=== PATIENT | male | born 1930 | race Caucasian/White ===

== ENCOUNTER → 2017-12-24 | Outpatient (CLI) | payer MEDICARE, OTHER | LOC: M.RAD 13:52 | DX: M54.42 Lumbago with sciatica, left side (principal); M54.41 Lumbago with sciatica, right side; G89.29 Other chronic pain; M47.896 Other spondylosis, lumbar region; M47.894 Other spondylosis, thoracic region; M41.85 Other forms of scoliosis, thoracolumbar region; R35.0 Frequency of micturition ==

== ENCOUNTER 2019-09-20 05:24 | Inpatient (IN) | payer MEDICARE, OTHER ==
[2019-09-20] VITALS (7 sets, daily range): BP systolic 116–140; BP diastolic 65–82
[~2019-09-20] VITALS: Ht 162.6 cm; Wt 57.2 kg
[2019-09-20] MEDS ORDERED: LIPITOR 20 MG T20 M1 PO (05:44)
[2019-09-20] MEDS ORDERED: ALPRAZOLAM XR3 MG PO (05:44)
[2019-09-20] MEDS ORDERED: ASA81BEC PO (05:44)
[2019-09-20] MEDS ORDERED: COQ-10100 MG PO (05:45)
[2019-09-20] MEDS ORDERED: CARVEDILOL12.5 MG PO ×2 (05:45→11:14)
[2019-09-20] MEDS ORDERED: VOLTAREN GEL 1100 G1 TOP (05:46)
[2019-09-20] MEDS ORDERED: MIRTAZAPINE7.5 MG PO (05:46)
[2019-09-20 06:03] LABS: ABSOLUTE EOSINOPHILS 0.2 thou/uL (0.0-0.7); ABSOLUTE LYMPHOCYTES 2.2 thou/uL (0.8-5.3); ABSOLUTE MONOCYTES 0.8 thou/uL (0.0-1.2); ABSOLUTE NEUTROPHILS 3.7 thou/uL (1.6-8.1); BASOPHILS 0.7 %; EOSINOPHILS 2.7 %; HEMATOCRIT 41.3 % (42.0-52.0); HEMOGLOBIN 14.1 gm/dL (14.0-18.0); LYMPHOCYTES 31.9 %; MCH 33.7 pg (26.0-34.0); MCHC 34.2 g/dL (28.0-37.0); MCV 98.4 fL (80.0-100.0); MONOCYTES 11.7 %; MPV 8.3 fl. (7.2-11.1); NUCLEATED RBCS 0 /100WBC; PLATELET COUNT* 182 thou/uL (150-400); RDW-CV 14.5 % (10.5-14.5); WBC 6.9 thou/uL (4.0-11.0)
[2019-09-20 06:10] LABS: CALCIUM 8.6 mg/dL (8.5-10.1); CREATININE 0.9 mg/dL (0.6-1.3); POTASSIUM 3.7 mmol/L (3.5-5.1)
[2019-09-20 06:15] LABS: PROTIME 10.7 Seconds (9.20-11.50)
[2019-09-20 06:20] LABS: ALBUMIN 3.6 g/dL (3.4-5.0); TOTAL BILIRUBIN 0.5 mg/dL (<0.1-1.0); TOTAL PROTEIN 7.2 g/dL (6.4-8.2)
[2019-09-20 07:47] LABS: URINE BILIRUBIN NEGATIVE (Negative); URINE BLOOD NEGATIVE (Negative); URINE CLARITY CLEAR; URINE COLOR YELLOW; URINE GLUCOSE-RANDOM NEGATIVE (Negative); URINE KETONES NEGATIVE (Negative); URINE LEUKOCYTES-REFLEX NEGATIVE (Negative); URINE NITRITE-REFLEX NEGATIVE (Negative); URINE PROTEIN NEGATIVE (Negative); URINE SPECIFIC GRAVITY <= 1.005 (1.005-1.030); URINE UROBILINOGEN 0.2 E.U./dl (0.2-1.0)
--- NOTE | 2019-09-20 10:43 | EKG ---
[place] [address] ELECTROCARDIOGRAM REPORT Name: DIRECTOR SALES AND MARKETINGAKHIL Room: [address] M.R.#: [id number] Admission: 09/20/19 Attend Phys: Jonah Rea MD Discharge: Date of : 30 Report #: [id number] THIS REPORT FOR: //name// [facility] ED Test Date: 2019-09-20 Test Time: 05:39:59 Pat Name: AKHIL HANLEY Department: Room: [facility] Gender: M Regional Liaison: : 1930 Requested By: Luna Hansen Order Number: [id number] MD: Denny Bhatt Measurements Intervals [place] Rate: 64 P: 54 MD: 185 QRS: 38 QRSD: 145 T: 14 QT: 435 QTc: 449 Interpretive Statements Sinus rhythm Ventricular premature complex Right bundle branch block No previous ECG available for comparison Electronically Signed On 09-20-2019 10:43:07 [employer]CER [employer] by Denny Bhatt [email or web address] <ELECTRONICALLY SIGNED> By: Denny Bhatt MD, [facility] 09/20/19 1043 D: [id number] 8 Denny Bhatt MD, FACC /EPI
[2019-09-20] MEDS ORDERED: XANAX 0.25 MG0.25 MG PO (11:08)
[2019-09-20] MEDS ORDERED: COLACE 100 MG100 MG PO (11:20)
[2019-09-20] MEDS ORDERED: B-121000 MC2 PO (11:27)
--- NOTE | 2019-09-20 13:10 | 2DMMODE ---
[place] [address] 2 D/M-MODE ECHOCARDIOGRAM Name: ATLASSIAN ADMINISTRATORAKHIL Room: [facility] Doug Marquez#: [id number] Admission: 09/20/19 Attend Phys: Jonah Rea, Discharge: Date of : 30 Date of Service: 09/20/19 1309 Report #: [id number] THIS REPORT FOR: //name// APPROVED REPORT Study performed: 09/20/2019 11:37:12 EXAM: Comprehensive 2D, Doppler, and color-flow Echocardiogram Patient Location: In-Patient Room #: 204 Status: routine BSA: 1.61 HR: 77 bpm BP: 131/72 mmHg Rhythm: NSR Other Information Study Quality: Good Indications CVA/TIA Echo Enhancing Agent Indication: Rule out Shunt Agent(s) / Amount(s) Used: Agitated Saline 10 cc 2D Dimensions IVSd: 11.40 (7-11mm) LVOT Diam: 21.93 (18-24mm) LVDd: 43.11 mm PWd: 8.95 (7-11mm) Ascending Ao: 33.65 (22-36mm) LVDs: 30.62 (25-40mm) Aortic Root: 36.15 mm Volumes Left Atrial Volume (Systole) LA ESV Index: 35.30 mL/m2 Aortic Valve AoV Peak Aren.: 1.05 m/s AO Peak Gr.: 4.42 mmHg LVOT Max P.97 mmHg AO Mean Gr.: 2.21 mmHg LVOT Mean P.65 mmHg LVOT Max V: 0.86 m/s AO V2 VTI: 20.49 cm LVOT Mean V: 0.60 m/s AMILCAR (VTI): 3.46 cm2 LVOT V1 VTI: 18.75 [place] [address] 2 D/M-MODE ECHOCARDIOGRAM Name: ATLASSIAN ADMINISTRATORAKHIL WILFRED Room: [address] M.R.#: [id number] Admission: 09/20/19 Attend Phys: Jonah Rea, Discharge: Date of : 30 Date of Service: 09/20/19 1309 Report #: [id number] Mitral Valve E/A Ratio: 0.60 MV Decel. Time: 323.66 ms MV E Max Aren.: 0.50 m/s MV PHT: 93.86 ms MVA (PHT): 2.34 cm2 TDI E/Lateral E': 6.25 E/Medial E': 7.14 Medial E' Aren.: 0.07 m/s Lateral E' Aren.: 0.08 m/s Pulmonary Valve PV Peak Aren.: 0.87 m/s PV Peak Gr.: 3.04 mmHg Tricuspid Valve RAP Estimate: 5.00 mmHg TR Peak Gr.: 20.82 mmHg RVSP: 25.00 mmHg PA Pressure: 25.00 mmHg Left Ventricle The left ventricle is normal size. There is normal LV segmental wall motion. There is normal left ventricular wall thickness. Left ventricular systolic function is normal. The left ventricular ejection fraction is within the normal range. LVEF is 55-60%. Grade I - abnormal relaxation pattern. Right Ventricle The right ventricle is normal size. The right ventricular systolic function is normal. Atria Left atrium is mildly dilated. Interatrial septum is intact without evidence of ASD or PFO. The right atrium size is normal. Aortic Valve Mild aortic valve sclerosis. No aortic regurgitation is present. There is no aortic valvular stenosis. Mitral Valve The mitral valve is normal in structure. Trace mitral regurgitation. No evidence of mitral valve stenosis. Tricuspid Valve The tricuspid valve is normal in structure. Trace tricuspid regurgitation. [place] [address] 2 D/M-MODE ECHOCARDIOGRAM Name: ATLASSIAN ADMINISTRATORAKHIL Room: [address] Doug MReginaRRegina#: [id number] Admission: 09/20/19 Attend Phys: Jonah Rea, Discharge: Date of : 30 Date of Service: 09/20/19 1309 Report #: [id number] Pulmonic Valve The pulmonary valve is normal in structure. There is no pulmonic valvular regurgitation. Great Vessels The aortic root is normal in size. IVC is normal in size and collapses >50% with inspiration. Pericardium There is no pericardial effusion. <Conclusion> LVEF is 55-60%. Left atrium is mildly dilated. Interatrial septum is intact without evidence of ASD or PFO. <ELECTRONICALLY SIGNED> By: Denny Bhatt MD, FACC 09/20/19 1309 1309 1309 Denny Bhatt MD, FACC /INF
--- NOTE | 2019-09-20 16:26 | CON ---
[address] [address] CONSULTATION Name: AKHIL HANLEY Room: [address] Doug Marquez#: [id number] Admission: 09/20/19 Attend Phys: Jonah Rea MD Discharge: Date of : 30 Report #: [id number] THIS REPORT FOR: //name// CC: Denny Rea DATE OF SERVICE: 09/20/2019 HISTORY OF PRESENT ILLNESS: The patient is an 89-year-old white male who I was asked to see in the hospital today after he complained of being weak. The history is obtained from the patient as well as his who is present. He was told years ago at [facility] that he may have had a small heart attack. However, he never had heart catheterization. He was followed for several years by Dr. Johnson. He has had stress test in the past that showed no significant coronary artery disease. Recently, he was having a decreased appetite, indigestion. He underwent an EGD in August and had to have his esophagus dilated. He was placed on amlodipine. He saw Dr. Fernandez last week and was noted to be hypotensive and bradycardic. He was told to stop the amlodipine and he decreased his Coreg in half. Last night at 4:00 in the morning, the patient complained of feeling anxious. He had some pain in his left arm and he felt weak. His daughter brought him to the Emergency Room and he was admitted. Cardiology consultation was requested. He has had no appetite. However, denied any chest pain, shortness of breath, palpitations or syncope. PAST MEDICAL HISTORY: He has had kidney stones removed in the past. He does have a history of hypertension, hyperlipidemia. MEDICATIONS: Include Xanax, aspirin, Lipitor, carvedilol, Remeron. He recently was taken off of nifedipine. He was placed on tramadol. ALLERGIES: He has no known drug allergies. FAMILY HISTORY: His father had a heart attack. SOCIAL HISTORY: He is . He and his live in [place]. He was mowing until last summer. He is retired from sales. No smoking or alcohol abuse. REVIEW OF SYSTEMS: He has had no history of stroke, asthma, liver disease, cancer, psychiatric illness, chronic skin condition. PHYSICAL EXAMINATION: GENERAL: Revealed an elderly slow moving male, lying in bed, appeared [place] [address] CONSULTATION Name: AKHIL HANLEY Room: [address] Doug Marquez#: [id number] Admission: 09/20/19 Attend Phys: Jonah Rea MD Discharge: Date of : 30 Report #: [id number] VITAL SIGNS: His blood pressure is 120/80, pulse 66. He was afebrile. HEENT: He was anicteric. Conjunctivae pink. Mucous membranes moist. NECK: Veins do not appear distended. CHEST: Clear to auscultation. CARDIOVASCULAR: Regular rate and rhythm. ABDOMEN: Soft. EXTREMITIES: Had no pitting edema. Dorsalis pedis pulse 1+. SKIN: Cool and dry. NEUROLOGIC: Nonfocal. RADIOLOGICAL DATA: His ECG on admission showed a sinus rhythm, premature ventricular contractions, right bundle-branch block. His workup included a chest x-ray done in the Emergency Room last night that showed normal heart size, clear lung lindsay. CT scan of the head was performed last night in the Emergency Room without contrast that showed atrophy, white matter changes. No evidence of infarction. LABORATORY DATA: Sodium 142, creatinine 0.9. Liver function studies were normal. Troponin 0.06. BNP 184. White blood cell count 6.9, hematocrit 41.3. IMPRESSION AND RECOMMENDATIONS: 1. Hypertension. The patient was recently taken off of nifedipine because of low blood pressure. He currently is on a beta geno. 2. History of bradycardia. His dose of carvedilol recently cut in half. 3. Confusion. Suspect dementia. 4. History of kidney stone. 5. Recent esophageal dilatation. 6. Hyperlipidemia. The patient is on a statin drug. Because of his complaint of aching all over I would consider discontinuing his statin drug. I would recommend no further cardiac evaluation at this time. <ELECTRONICALLY SIGNED> By: Denny Bhatt MD, FACC 09/20/19 1626 1233 [id number] Bhatt MD, FACC /nt
--- NOTE | 2019-09-20 19:40 | NUR ---
Pt arrived at approx 0810 from er. pt a/o x3, forgetful, confused and anxoius. pt able to answer most qusetions approprialty. NIH done as charted. pt up with assist, states he feels weeker than usual. Admission done as charted, discussed POC with pts and DTR. we spoke multiple times about pts home meds and tests being done today. Dtr concerned about home dose of Remeron. pt to F/U with PCP in approx 1 week. pt has poor appitite. concerned that he has not had a bm today. fall precautions are in place. bed alarm on. pt npo this eveing for head ct with contrast. Report given to Will BRIAN.
[2019-09-21 04:00] VITALS: BP 114/59
[2019-09-21 05:47] LABS: CHOLESTEROL 95 mg/dL (<200); HDL CHOLESTEROL 41 mg/dL (>40); LDL CHOLESTEROL 42 mg/dL (<100); TC:HDL 2.3 Ratio (Not establshd); TRIGLYCERIDE 64 mg/dL (<150); VLDL 13 mg/dL (<40)
[2019-09-21 05:50] LABS: SERUM ASSESSMENT Clear
--- NOTE | 2019-09-21 07:13 | NUR ---
RESULTS FROM CTA GIVEN TO BOTH REIKI PRACTITIONER NEURO PROVIDER AND HOSPITALIST, STATED THAT WILL BE ADDRESSED IN THE AM. VSS. SEE MAR. SEE CHARTING. FALL PRECAUTIONS IN PLACE. HOURLY ROUNDING FOR SAFETY.
[2019-09-21 08:00] VITALS: BP 126/70
--- NOTE | 2019-09-21 08:28 | NUR ---
Pt is A&O but forgetful. Pt is independent, but reports getting weaker over the past few months. No DME. No hx of HH or SNF. Anticipate dc to home today. May benefit from HH. Following.
[2019-09-21 12:00] VITALS: BP 98/58
--- NOTE | 2019-09-21 15:18 | NUR ---
I have reviewed the documentation by SUSAN BACK from 09/21/19 to 09/21/19 and I concur with it. JIMENEZ STODDARD
[2019-09-21 16:23] VITALS: BP 132/74
[2019-09-21 19:30] VITALS: BP 124/70
--- NOTE | 2019-09-21 19:44 | NUR ---
ASSUMED PT CARE AT 0730, FULL ASSESMENT DONE CHARTED. PT A/O X3-4 FORGETFUL AT TIMES, VERY ANXIOUS. PT AGREED TO MRI TODAY, PT DID WELL WITH DOSE OF IV MEDS PRE TEST. PT HAS GOOD APITITE THIS EVENING. FALL PRECAUTIONS IN PLACE, PT CALLS APPROPRIATLY FOR NEEDS. FAMILY UPDATED ON PLAN OF CARE. REPORT GIVEN TO WILL BRIAN
[2019-09-22] VITALS: BP 122/81
[2019-09-22 02:10] LABS: GLYCOHEMOGLOBIN (HGB A1C) 5.5 % (4.8-5.6)
[2019-09-22 04:00] VITALS: BP 123/63
[2019-09-22 08:25] VITALS: BP 136/80
--- NOTE | 2019-09-22 11:12 | NUR ---
Pt discharging to home today, faxed HH orders to [facility] per 's request.
[2019-09-22 11:14] VITALS: BP 136/80
[2019-09-22 11:18] VITALS: BP 136/80
[2019-09-22] MEDS ORDERED: VITAMIN D32000 UNIT PO (11:51)
--- NOTE | 2019-09-22 12:40 | NUR ---
Assumed care of patient this morning, noted to be lethargic and very slow to verbally respond RN held am alprazolam. Is alert and oriented x 4, answers all questions appropriately. VSS, LCTA, am meds given and patient had a small BM. Pt demonstrates a steady gait, and was assisted with bedside bathing. Dr. oDve made rounds and dc orders were rec'd. Pt family at the bedside and dc instructions given at 1220 with understanding verbalized. Pt dcd per w/c accompanied by RN to family truck in good condition.
--- NOTE | 2019-09-27 12:03 | EEG ---
[address] [address] EEG STUDY REPORT Name: AKHIL HANLEY Room: [address] IN M.R.#: [id number] Admission: 09/21/19 Attend Phys: Jonah Rea MD Discharge: 09/22/19 Date of : 30 Report #: [id number] THIS REPORT FOR: //name// CC: Denny Rea DATE OF SERVICE: 09/20/2019 This patient is being evaluated for altered mental status and weakness. EEG was done by placing the electrode by standard 10-20 system of electrode placement. Both referential and sequential montages were used for recording. Background activity in this patient's EEG was about 9 Hz and 30 microvolts. It is a symmetrical activity. Photic stimulation is unremarkable. The patient became drowsy and that is associated with bilateral slowing. Throughout the record, no active epileptiform activity was noticed. IMPRESSION: This patient's EEG is unremarkable. <ELECTRONICALLY SIGNED> By: Jesus Dunn MD 09/27/19 1203 1447 [id number] Dunn MD /nt
--- NOTE | 2019-09-27 12:03 | CON ---
[address] [address] CONSULTATION Name: AUTOMATIC PILOT MECHANICAKHIL Room: [address] [place] M.R.#: [id number] Admission: 09/21/19 Attend Phys: Jonah eRa MD Discharge: 09/22/19 Date of : 30 Report #: [id number] THIS REPORT FOR: //name// CC: Denny Rea DATE OF SERVICE: 09/20/2019 HISTORY OF PRESENT ILLNESS: This is an 89-year-old male patient who thinks he had a stroke. He does not describe why he thinks he had a stroke. I had a long conversation with the patient's daughter, patient's and the patient himself. Apparently, this patient indicates that he has a longstanding history of anxiety. He is on Remeron for a long period of time. Recently, he has been given Xanax. He said he was doing exercises by mowing the grass, but then he stopped doing it. He thinks he has become weaker because of that. The weakness is generalized. He said if he is sitting down, he is okay, but whenever he tries to move around he feels even more weak than before. He indicates that his blood pressure has been fluctuating, but the best I can tell that his blood pressure is staying at least 120s to 130s systolic during this hospitalization. REVIEW OF SYSTEMS: A 14-point review of system was carried out. This patient has generalized weakness. He has a history of anxiety. He takes medications for that. He was recently started on nifedipine. Family thinks he has been confused from last few months. History is poorly defined. He has multiple other symptoms, but looks like he has a history of atherosclerotic heart disease, hypertension, fatigue, and hyperlipidemia. He denies any new eye, ENT symptoms. He does not have any chest pain or any marked respiratory difficulty. He does not have any abdominal or urinary tract symptoms. He does complain of some nonspecific musculoskeletal symptom. He does have a psychiatric history. He does not have any dermatological or hematological symptoms, which are new. PAST MEDICAL HISTORY: Positive for anxiety. FAMILY HISTORY: Negative for any early age stroke. SOCIAL HISTORY: He does not drink any alcohol or smoke. PHYSICAL EXAMINATION: Indicates he is alert. He appeared depressed. He is pretty anxious. His speech looks intact. It does not look like he has any significant difficulty with speech. His memory and fund of knowledge is at his baseline. 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 He moves all four extremities well. His position sense looks intact. Reflexes look symmetrical. There is no cerebellar sign. I could not look at the patient's fundus. He does not have any thyroid mass. He does not have any carotid bruit. His hearing and vision looks adequate. He [place] [address] CONSULTATION Name: AUTOMATIC PILOT MECHANICAKHIL WILFRED Room: [address] [place] Angel.Ivonne#: [id number] Admission: 09/21/19 Attend Phys: Jonah Rea MD Discharge: 09/22/19 Date of : 30 Report #: [id number] does not have any dysmorphic features of eyes, ears and face. He has no respiratory difficulty or rhonchi. Cardiac examination is unremarkable. Blood pressure is 126/79, respiration is 16, pulse is 66, and temperature is 97.6. LABORATORY DATA: Indicate a normal white count. His sodium is normal. IMPRESSION: Generalized weakness. This patient had a lot of anxiety. His weakness may be partly because of his blood pressure went low, if it did go low I am not sure about that. His eye findings a little bit old, but because of that, we will exclude the possibility of myasthenia gravis. He does have extensive CT disease, but he said he is claustrophobic and he cannot do an MRI. He wants to try and we will see if he is able to do that. If he is able to do that, that will help. Otherwise, we will await the other workup in this patient including myasthenia markers. I discussed all of it with the patient in detail. He understands that and he wants to follow this plan. <ELECTRONICALLY SIGNED> By: Jesus Dunn MD 09/27/19 1203 1134 1210Jesus Dunn MD /nt
== END 2019-09-22 12:30 | disposition home health service (06) | DRG 880 ==
LOC: M.ERS 05:24 → M.TBA-ER 06:38 → M.2W 06:38
PROVIDERS: Internal Medicine; Personal Emergency Response Attendant; ADMIT Internal Medicine
DX: F41.0 Panic disorder [episodic paroxysmal anxiety] (principal); I67.1 Cerebral aneurysm, nonruptured; I25.10 Atherosclerotic heart disease of native coronary artery without angina pectoris; I10 Essential (primary) hypertension; K21.9 Gastro-esophageal reflux disease without esophagitis; E78.5 Hyperlipidemia, unspecified; M53.9 Dorsopathy, unspecified; F41.9 Anxiety disorder, unspecified; I95.9 Hypotension, unspecified; F40.240 Claustrophobia; Z79.899 Other long term (current) drug therapy; Z79.82 Long term (current) use of aspirin; Z95.5 Presence of coronary angioplasty implant and graft; I25.2 Old myocardial infarction